=== PATIENT | male | born 1950 | race Caucasian/White ===

== ENCOUNTER 2024-11-04 08:00 | Outpatient (RCR) | payer OTHER, SELFPAY ==
[2024-10-19 13:16] VITALS: BP 108/60; PULSE 68; TEMP 36.2
[2024-10-19 13:20] VITALS: BMI 27.5
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
--- NOTE | 2024-10-24 11:20 | HO.PHP ---
Sergio is not scheduled today due to having a hearing exam.
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
--- NOTE | 2024-11-04 19:17 | P.PNPSP_ITS ---
Subjective Subjective Date of Service: 11/04/24 Reason For Visit: anxiety,depression,SI Interim History: Patient seen for follow-up, anticipating discharge at the end of program today.? This has been a great place. I feel it's a safe environment... it's helped Patient feeling he is no longer depressed. Anad in fact has come to realization that perhaps he is not depressed, this may just all be due to a traumatic experience (vangie JiménezAinsleyjunior) ..was blocking my memory . He is considering neuropsych testing. Reports no acute issues or concerns. Medication compliant, medications well- tolerated. Denies any adverse effects.? Mood is stable.? Denies any hopelessness or SI. Denies thoughts of harming self or others at this time. Denies any aggressive ideation or HI. Denies any paranoia or AH or VH. Sleep, appetite, energy stable. Medication Compliance: Yes Side effects from medications: No Attending Groups: Yes Review of Systems Acute medical concerns: No Mental Status Exam Mental Status Exam Narrative: Alert, oriented, in no acute distress. Calm, cooperative. Mood stable, affect appropriate. Speech normal. Thought process linear, coherent, more goal- directed. Thought content related to stressors, future-oriented, denies any helplessness, hopelessness or SI.? No aggressive ideation or HI. No paranoia or delusional content elicited. No evidence of psychosis. Insight and judgment fair-good. Diagnostics Vital Signs (24Hr): BMI result Body Mass Index 27.5 Assessment & Plan Assessment & Plan (1) Mood disorder: Status: Acute Code(s): F39 - Unspecified mood [affective] disorder (2) PTSD (post-traumatic stress disorder): Status: Acute Code(s): F43.10 - Post-traumatic stress disorder, unspecified Plan Discharge from [facility] Continue regular medications? Refills sent to pharmacy Will defer further medication management to outpatient provider *Safety plan reviewed *Discharge diagnoses, treatment course, discharge plan have been reviewed with patient (including medication regime, medication management, potential side effects) as well as treatment rationale were also revisited *Discharge paperwork signed and given to patient, copy sent for scanning to [facility] Patient educated on: diagnosis and medication risk/benefits Informed Consent: understands Reason for contiued partial hosp. stay Substantial Risk for: stable for discharge Certification I certify that partial hospital treatment is medically necessary due to the symptoms and problems resulting from the patient's mental illness and the failure to treat the patient at the partial hospital level of care would likely result in the patient requiring inpatient psychiatric care which could not be prevented at a less intensive level of care. Total time managing care of this patient today __30__ minutes. Discharge Plan Discharge Attending provider: Mona Ovalles Medications: Continued atorvastatin 80 mg tablet 80 mg PO DAILY divalproex 500 mg tablet extended release 24 hr 1,000 mg PO BEDTIME metoprolol succinate 25 mg tablet extended release 24 hr 12.5 mg PO DAILY Rx Instructions: TAKE 1/2 TABLET BY MOUTH DAILY fluticasone propionate 50 mcg/actuation spray,suspension 1 spray intranasal BEDTIME finasteride 5 mg tablet 5 mg PO DAILY Eliquis 5 mg tablet 5 mg PO BID divalproex [Depakote ER] 250 mg Tablet Extended Release 24 Hr 125 mg PO DAILY Patient Comments: Pharmacy stated 250 mg at HS however patient reports he takes 250 mg 1/2 tab in the morning and 100 mg in the evening. Also on list that patient's provided. Rx Instructions: 1/2 tab daily in the morning. Patient Education: PTSD (Post Traumatic Stress Disorder) (ED), PTSD (Post Traumatic Stress Disorder) (DC) Print Language: Maltese
== END 2024-11-04 23:59 | disposition home or self-care (01) ==
LOC: HO.PHPA 08:00
PROVIDERS: Visit Provider Psychiatry & Neurology Psychiatry
DX: F39 Unspecified mood [affective] disorder (principal); F43.10 Post-traumatic stress disorder, unspecified; Z79.899 Other long term (current) drug therapy
CPT/HCPCS: 90791; 90853

== ENCOUNTER → 2024-11-04 08:00 | Outpatient (BNV) | payer OTHER, SELFPAY | PROVIDERS: Visit Provider Psychiatry & Neurology Psychiatry | DX: F39 Unspecified mood [affective] disorder (principal); F43.10 Post-traumatic stress disorder, unspecified | CPT/HCPCS: 99213 ==